=== PATIENT | male | born 1945 | race Caucasian/White ===

== ENCOUNTER 2018-09-19 16:30 | Emergency (ER) | payer OTHER ==
[2018-09-19] MEDS: ALBUTEROL 0.083% (NEB) 2.5 MG/3 ML AMP INH (17:06)
[2018-09-19] MEDS: IPRATROPIUM (NEB) 0.5 MG/2.5 ML AMP INH (17:06)
[2018-09-19 17:17] LABS: ADD MAN DIFF? NO
[2018-09-19 17:24] LABS: WHITE BLOOD COUNT 9.6 10^3/ul (4.8-10.8)
[2018-09-19 17:24] LABS: BASOPHILS % 0.3 % (0.0-2.0); EOSINOPHILS # 0.1 10^3/ul (0.0-0.5); EOSINOPHILS % 1.4 % (0.0-7.0); HEMATOCRIT 40.6 % (42.0-52.0); HEMOGLOBIN 12.9 g/dl (14.0-18.0); LYMPHOCYTES # 0.9 10^3/ul (0.8-2.9); LYMPHOCYTES % 9.4 % (15.0-51.0); MEAN CORPUSCULAR HEMOGLOBIN 27.3 pg (29.0-33.0); MEAN CORPUSCULAR HGB CONC 31.8 g/dl (32.0-37.0); MEAN CORPUSCULAR VOLUME 85.8 fl (82.0-101.0); MEAN PLATELET VOLUME 9.6 fl (7.4-10.4); MONOCYTE # 0.6 10^3/ul (0.3-0.9); MONOCYTES % 6.1 % (0.0-11.0); NEUTROPHIL # 7.9 10^3/ul (1.6-7.5); NEUTROPHILS % 82.5 % (39.0-77.0); PLATELET COUNT 424 10^3/UL (140-415); RED BLOOD COUNT 4.73 10^6/ul (4.70-6.10); RED CELL DISTRIBUTION WIDTH 15.7 % (11.5-14.5)
[2018-09-19 17:45] LABS: ALANINE AMINOTRANSFERASE 18 IU/L (13-69); ALBUMIN 3.5 g/dl (3.3-4.9); ALBUMIN/GLOBULIN RATIO 0.63; ALKALINE PHOSPHATASE 96 IU/L (42-121); ANION GAP 5 (5-13); ASPARTATE AMINO TRANSFERASE 35 IU/L (15-46); BILIRUBIN,INDIRECT 0.4 mg/dl (0-1.1); BILIRUBIN,TOTAL 0.4 mg/dl (0.2-1.3); BLOOD UREA NITROGEN 19 mg/dl (7-20); CALCIUM 8.9 mg/dl (8.4-10.2); CARBON DIOXIDE 38 mmol/L (21-31); CHLORIDE 94 mmol/L (97-110); CREATININE 0.73 mg/dl (0.61-1.24); GLUCOSE 133 mg/dl (70-220); POTASSIUM 4.5 mmol/L (3.5-5.1); SODIUM 137 mmol/L (135-144)
[2018-09-19 17:56] LABS: TROPONIN-I < 0.012 ng/ml (0.000-0.120)
[2018-09-19 20:46] LABS: AADO2 Arterial 45.5 mmHg (7.0-24.0); Arterial Base Excess 9.1 mmol/L (-3.0-3); Arterial Blood Gas Oxygen Sat 97.1 mmHG (95.0-100.0); Arterial COHb 0.5 % (0.0-3.0); Arterial Fraction of Oxyhgb 96.4 % (93.0-99.0); Arterial HCO3 35.9 mmol/L (22.0-26.0); Arterial MetHb 0.2 % (0.0-1.5); Arterial pCO2 59.3 mmhg (35-45); MODE NASAL CANNULA; Site Right Brachial
== END 2018-09-19 21:50 | disposition short-term general hospital (02) ==
LOC: E/R 16:30
DX: J98.4 Other disorders of lung (principal)
CPT/HCPCS: 36415; 36600; 71045; 80053; 82803; 83605; 84484; 85025; 93005; 94664; 99285-25